=== PATIENT | female | born 1955 | race Caucasian/White ===

== ENCOUNTER 2019-01-23 02:17 | Inpatient (IN) | payer OTHER ==
[~2019-01-23] VITALS: Ht 175.3 cm; Wt 52.0 kg
[2019-01-23] VITALS (20 sets, daily range): BP systolic 105–132; BP diastolic 61–83
[2019-01-23] MEDS ORDERED: SODIUM CHLORIDE 0.9% 1,000 ML IVB ONE (02:29)
[2019-01-23] MEDS ORDERED: METOPROLOL TARTRATE 1MG/1ML-5ML VIAL IV ONE (02:30)
[2019-01-23 03:17] LABS: Basophils # (auto) 0 uL; Basophils % (auto) 0.9 % (0.0-2.0); Eosinophils # (auto) 0.1 uL; Eosinophils % (auto) 1.2 % (0.0-7.0); Hematocrit 40.5 % (36.0-46.0); Hemoglobin 13.6 g/dL (12.2-16.2); Lymphocytes # (auto) 2.1 uL; Lymphocytes % (auto) 50.4 % (10.0-50.0); Mean Corpuscular Hemoglobin 30.8 pg (28.0-32.0); Mean Corpuscular Hgb Conc. 33.5 g/dL (32.0-36.0); Mean Corpuscular Volume 91.9 fL (80.0-100.0); Monocytes # (auto) 0.1 uL; Monocytes % (auto) 2.5 % (0.0-12.0); Neutrophils # (auto) 1.9 uL; Platelet Count (auto) 195 10^3/uL (140-450); Red Blood Cells 4.41 10^6/uL (4.0-5.20); Red Cell Distribution Width 13.8 % (11.8-14.3); White Blood Cell 4.2 10^3/uL (4.4-10.8)
[2019-01-23 03:35] LABS: INR 1.03 (0.9-1.15); Partial Thromboplastin Time 23.5 sec (23.64-32.05)
[2019-01-23 03:36] LABS: Anion Gap 9 (5-15); Blood Urea Nitrogen 19 mg/dL (7-18); Calcium 7.9 mg/dL (8.5-10.1); Carbon Dioxide 23 mmol/L (21-32); Chloride 113 mmol/L (98-107); Glucose 205 mg/dL (74-106); Magnesium 2.3 mg/dL (1.6-2.6); Potassium 3.1 mmol/L (3.5-5.1); Sodium 145 mmol/L (136-145)
[2019-01-23 03:43] LABS: Alanine Aminotransferase 46 U/L (13-56); Alkaline Phosphatase 51 U/L (45-117); Aspartate Aminotransferase 50 U/L (15-37); Bilirubin, Total 0.2 mg/dL (0.2-1.0); GFR African American 63 mL/min; GFR Non-African American 52 mL/min
[2019-01-23] MEDS ORDERED: NOREPINEPHRINE 8 MG/250ML KIT 250 ML IV SCH (04:00)
[2019-01-23] MEDS ORDERED: ONDANSETRON HCL 4 MG/2 ML VIAL IV ONE (04:00)
[2019-01-23] MEDS ORDERED: NOREPINEPHRINE 8 MG/250ML KIT 250 ML IV ONE (04:01)
[2019-01-23] MEDS ORDERED: AMIODARONE HCL 900 MG in DEXTROSE 500 ML IV SCH ×2 (04:30→10:30)
[2019-01-23] MEDS: POTASSIUM CHL 20MEQ/100ML 100 ML IV SCH ×2 (04:30→06:37)
[2019-01-23 06:50] LABS: Urine Bacteria FEW /hpf (None Seen); Urine Blood 1+ /uL (Negative); Urine Hyaline Cast MANY /lpf (0 - 2); Urine Mucus FEW (None Seen); Urine Specific Gravity 1.011 (1.001-1.035); Urine WBC 4 /hpf (0 - 5)
[2019-01-23] MEDS ORDERED: ONDANSETRON HCL 4 MG/2 ML VIAL IV PRN (07:15)
[2019-01-23] MEDS ORDERED: TEMAZEPAM 15 MG CAP PO PRN (07:15)
[2019-01-23] MEDS ORDERED: SODIUM CHLORIDE 0.9% 1,000 ML IV SCH (07:15)
[2019-01-23] MEDS ORDERED: ACETAMINOPHEN 325 MG TAB PO PRN (07:15)
[2019-01-23] MEDS ORDERED: NITROGLYCERIN 0.4 MG SL TAB SL PRN (07:15)
[2019-01-23] MEDS ORDERED: MORPHINE SULF INJ 2 MG/ML SYRINGE 1ML IV PRN (07:15)
[2019-01-23] MEDS ORDERED: ATORVASTATIN 20 MG TAB PO ONE ×2 (08:00→12:45)
[2019-01-23] MEDS ORDERED: ENOXAPARIN SOD 100 MG/1 ML SYRINGE SC ONE (08:00)
[2019-01-23] MEDS ORDERED: ASPirin 81 mg TAB PO ONE (08:00)
[2019-01-23] MEDS ORDERED: cefTRIAXone 1GM/50ML D5W 50 ML IV SCH (09:00)
--- NOTE | 2019-01-23 09:35 | NUR ---
Received pt from ED. A+O x4 denies any c.p or s.o.b pt currently on 2 jus/min of levophed, vss, afibrile, pt no longer being re-warmed. pt normo-thermic. Pt remains NPO until boom boss comes to assess pt. Educated pt on poc. pt verbalized understanding.
[2019-01-23] MEDS ORDERED: ENOXAPARIN SOD 100 MG/1 ML SYRINGE SC SCH (10:00)
--- NOTE | 2019-01-23 11:00 | NUR ---
WEANED OFF LEVOPHED. VSS. AWAITING FOR MD. TO ROUND ON PT TO CLEAR PT TO BE DOWNGRADED TO FLOOR.
--- NOTE | 2019-01-23 11:32 | NUR ---
NOTIFIED DR. GAINES OF ELEVATED TROPONIN 2.09 DR. GAINES WILL COME TO SEE PT LATER IN THE EVENING. PT AWARE THAT PT CAME IN WITH TACHYCARDIA AND HYPOTENSION, IS CURRENTLY OFF PRESSORS AND IS NO LONGER HAVING C.P.
--- NOTE | 2019-01-23 12:46 | NUR ---
DR. TORRES ROUNDING ON PT. NEW ORDERS RECEIVED FOR PLAVIX LOADING DOSE AND ADDITIONAL 132 MG OF ASA. TO CHANGE IVF TO D51/2 NS WHILE PT IS NPO AND TO KEEP PT IN HOSPITAL REGARDLESS OF HER INSURANCE [facility] NOT AUTHORIZING HER STAY. PT,. NEEDS CARDIAC CLEARANCE PRIOR TO BEEN CONSIDER STABLE TO BE TRANSFER.
[2019-01-23] MEDS ORDERED: CLOPIDOGREL 300 MG TAB PO ONE (13:00)
[2019-01-23] MEDS ORDERED: D5W/SOD CHL 0.45% 1,000 ML IV SCH (13:00)
[2019-01-23] MEDS: FAMOTIDINE 20 MG TAB PO SCH ×2 (13:33→21:39)
--- NOTE | 2019-01-23 14:13 | NUR ---
1300 01/23/19 Contacted testing analyst Joshua at [facility] and requested to speak with [employer] Producer regarding admission authorization. Per Joshua patient has not been assigned to a shoe parts caser yet-case has been denied to to lack of notification prior to admission. I asked to speak with any shoe parts caser regarding the fact that patient has elevated troponins and will most likely require a heart catheterization-requesting authorization for procedure. Per Joshua, this has to come from the Newscast Producer who will be assigned to the case. Per Joshua he will have the Newscast Producer (once assigned) call me regarding authorization. I spoke with Dr. Ceballos to make her aware of authorization status.
--- NOTE | 2019-01-23 15:05 | NUR ---
Transferred from ICU to [facility] transferred to [facility] via hospital bed on front desk monitor, and portable 02. Patient connected to unit monitoring and oxygen, and weighed by bedscale. Patient oriented to ANA LORENZO, RN primary RN, unit, room, bed, and unit policies regarding patient care and visiting hours. All questions and concerns addressed, patient verbalized understanding. Patient has 20 G right forearm with NS lock, 18 G at left AC running IV 40 ml/hr, F/C draining to the bag well, on O2 NC 2 LPM , O2 saturation 100%, no complaining of chest pain or N/V noted, last BM was last night. Patient alert and awake, follow direction, able to move all extremities. BT 98.5 F, HR 71 with SR, BP 130/66 mmHg. Will continue to monitor and patient made aware that will keep NPO, waiting for Dr. Smith.
--- NOTE | 2019-01-23 15:25 | NUR ---
called dr. lugo to clarify if she wanted venous doppler us. as discussed before for BLE, pt has elevated d- dimer. pt also has elevated troponin. pt already had echocardiogram and has to have it read.
--- NOTE | 2019-01-23 15:53 | NUR ---
Patient's families at the bedside. Patient sitting up on the bed, talking to her families, no complaining of chest pain noted, vital sign stable, BP 119/72 mmHg, HR 71 /min.
--- NOTE | 2019-01-23 16:24 | NUR ---
Ultrasound at the bedside.
--- NOTE | 2019-01-23 16:25 | NUR ---
MRSA specimen already obtained and sent to the lab.
--- NOTE | 2019-01-23 17:02 | NUR ---
Paged Dr. Smith regarding consultation and possible procedure today, patient been NPO for possible procedure, waiting a call back from MD.
--- NOTE | 2019-01-23 17:28 | NUR ---
Paged Hospitalist substation manager regarding Diet and nose congestion, waiting for MD to call back.
[2019-01-23] MEDS ORDERED: POTASSIUM EFFERVESENT TAB 25 MEQ GT ONE (18:00)
--- NOTE | 2019-01-23 18:15 | NUR ---
Received a call back from Dr. Smith, patient okay to have dinner, received order for Cardiac diet, plan to do Cardiolite possible tomorrow, patient made aware.
--- NOTE | 2019-01-23 18:25 | NUR ---
Got a call back from Cristofer CHOI for hospitalist, received order for Barton spray for nose congestion, patient and her families made aware.
--- NOTE | 2019-01-23 18:39 | NUR ---
Dr. Smith at the bedside, seen patient at this time, plan of care discussed with patient and her families at the bedside. Received order for Potassium 20 mEq po x 1, D/C previous Potassium 50 mEq. Patient made aware.
[2019-01-23] MEDS ORDERED: POTASSIUM CHL 20 Meq TABLET PO ONE (18:45)
--- NOTE | 2019-01-23 18:49 | NUR ---
Patient had around 100% of Dinner tray, no N/V noted.
--- NOTE | 2019-01-23 19:10 | NUR ---
OPENING SHIFT RECEIVED REPORT FROM DAY SHIFT RN. ASSUMED CARE OF PATIENT IN BED WITH NO SIGNS OR SYMPTOMS OF SOB, PAIN OR DISTRESS. CURRENTLY ON 2L 02 NASAL CANNULA, 02 SAT - 99%. RIGHT FORE ARM AND LEFT ANTECUBITAL IV - CLEAN/DRY/INTACT. JOHN HUNG TO GRAVITY ON BED RAIL. UPDATED PATIENT ON PLAN OF CARE. WILL CONTINUE TO MONITOR.
[2019-01-23] MEDS: SALINE 0.65 % NASAL SPRAY 45ML BOTTLE EACHNOSTRI SCH (21:39)
[2019-01-23] MEDS: ENOXAPARIN SOD 80 MG/0.8ML SYRINGE SC SCH (21:40)
[2019-01-23] MEDS ORDERED: ATORVASTATIN 20 MG TAB PO SCH (22:00)
[2019-01-24] VITALS: BP 95/53
[2019-01-24 04:00] VITALS: BP 100/58
--- NOTE | 2019-01-24 04:45 | NUR ---
MORNING CARE PATIENT PERFORMED MORNING CARE ON SELF WITH CHG WIPES AND WASH CLOTHS. PARTIAL LINEN CHANGE AND GOWN CHANGED. REPOSITIONED FOR COMFORT. SKIN REASSESSED AT THIS TIME. BED IN LOWEST POSITION, SIDE RAILS UP X2, CALL LIGHT WITHIN REACH. WILL CONTINUE TO MONITOR.
[2019-01-24 05:42] LABS: Basophils # (auto) 0.1 uL; Basophils % (auto) 1.3 % (0.0-2.0); Eosinophils # (auto) 0 uL; Eosinophils % (auto) 0.8 % (0.0-7.0); Hematocrit 38.9 % (36.0-46.0); Hemoglobin 13.5 g/dL (12.2-16.2); Lymphocytes # (auto) 1.7 uL; Lymphocytes % (auto) 42.4 % (10.0-50.0); Mean Corpuscular Hemoglobin 31.2 pg (28.0-32.0); Mean Corpuscular Hgb Conc. 34.8 g/dL (32.0-36.0); Mean Corpuscular Volume 89.5 fL (80.0-100.0); Monocytes # (auto) 0.2 uL; Monocytes % (auto) 5.6 % (0.0-12.0); Neutrophils % (auto) 49.9 % (37.0-80.0); Platelet Count (auto) 143 10^3/uL (140-450); Red Blood Cells 4.34 10^6/uL (4.0-5.20); Red Cell Distribution Width 13.8 % (11.8-14.3); White Blood Cell 4.1 10^3/uL (4.4-10.8)
[2019-01-24] MEDS: SALINE 0.65 % NASAL SPRAY 45ML BOTTLE EACHNOSTRI SCH ×2 (05:56→12:39)
[2019-01-24 06:08] LABS: Calcium 8.1 mg/dL (8.5-10.1); Potassium 4.6 mmol/L (3.5-5.1)
[2019-01-24 06:14] LABS: Albumin 3.2 g/dL (3.4-5.0); BUN/Creatinine Ratio 14.8; Bilirubin, Total 0.4 mg/dL (0.2-1.0); Total Protein 6.2 g/dL (6.4-8.2)
--- NOTE | 2019-01-24 07:18 | NUR ---
END OF SHIFT REPORT GIVEN TO DAY SHIFT RN. CARE ENDORSED.
--- NOTE | 2019-01-24 07:54 | NUR ---
Opening Shift Note Assumed care of patient, patient sleeping, woke up by calling her name, awake and alert. No S/S of distress/SOB or chest pain. Instructed on POC and to call for assist PRN, will continue to monitor for changes Q1hr and PRN. Patient made aware that will need to NPO this morning for Cardiolite, will continue to monitor and care. Addendum: 01/24/19 at 0807 by ANA LORENZO RN RN By MACIEL FONG
[2019-01-24 08:00] VITALS: BP 111/62
--- NOTE | 2019-01-24 08:30 | NUR ---
Her at the bedside, made aware about the plan of care.
[2019-01-24] MEDS ORDERED: ADENOSINE 44 MG in GIVE UN-DILUTED 0 ML IV STA (09:06)
--- NOTE | 2019-01-24 09:30 | NUR ---
Patient was taken for Cardiolite.
[2019-01-24] MEDS ORDERED: ASPirin 81 mg TAB PO SCH ×2 (10:00→11:00)
[2019-01-24] MEDS ORDERED: ENOXAPARIN SOD 100 MG/1 ML SYRINGE SC SCH (10:00)
--- NOTE | 2019-01-24 10:45 | NUR ---
[facility], Dr. Mercado also at the bedside, plan of care discussed with patient, received order for transfer to [place], patient and her made aware.
[2019-01-24] MEDS ORDERED: CLOPIDOGREL BISULFATE 75 MG TAB PO ONE (11:00)
[2019-01-24] MEDS: FAMOTIDINE 20 MG TAB PO SCH (11:11)
[2019-01-24] MEDS: ENOXAPARIN SOD 80 MG/0.8ML SYRINGE SC SCH (11:11)
[2019-01-24 11:34] VITALS: BP 111/62
[2019-01-24 12:00] VITALS: BP 121/71
--- NOTE | 2019-01-24 12:29 | NUR ---
Received a call from manager case management ([place]), updated patient vital sign and they are waiting a result of Cardiolite and also Echocardiogram. Will fax when i get the result. [place] and .
--- NOTE | 2019-01-24 14:00 | NUR ---
Patient used the bedside commode, no BM at this time, just the gas.
--- NOTE | 2019-01-24 14:16 | NUR ---
Faxed Cardiology report and progress noted to [facility], called and spoke to shoe parts caser, they got the fax. Will wait they will call back for the bed and picking tech time.
[2019-01-24] MEDS ORDERED: ASPI-378 PO (15:13)
[2019-01-24] MEDS ORDERED: CLOP75TA28 PO (15:13)
[2019-01-24] MEDS ORDERED: ATO40T PO (15:14)
--- NOTE | 2019-01-24 15:30 | NUR ---
Received a call from Dr. Jess MD discussed with Dr. Smith that patient can D/C home and follow up with registration officer from [facility]. Patient made aware and she will call her to pick her up.
--- NOTE | 2019-01-24 15:36 | NUR ---
Sent MRSA to Lab.
--- NOTE | 2019-01-24 15:40 | NUR ---
Called and talked to family preservation caseworker from [place], she made aware that patient will D/C home from here.
[2019-01-24 16:00] VITALS: BP 117/69
--- NOTE | 2019-01-24 17:19 | NUR ---
Called the [place] pharmacy for call in for prescription. Patient made aware that will buy ASA 81 mg from [facility]. Provided Lipitor 40 mg at this time.
--- NOTE | 2019-01-24 17:33 | NUR ---
Discharge instructions given as ordered. Encourage to follow up with PMD as instructed. All questions and concerns addressed. Patient verbalized understanding. Medication reconciliation form completed and copy given to patient. IV removed with catheter intact, pressure dressing applied, whalen catheter removed (got 2800 ml from the catheter, patient made aware to monitor for hematuria, bladder full, if cannot void patient made aware that will be back to hospital for future treatment. Patient stated that bats[place] daughter already made the appointment for patient to follow up with PCP tomorrow and program review director on Monday. Patient taken to vehicle via wheelchair with all personal belongings, accompanied by staff and family member. No distress noted at time of departure.
[2019-01-24] MEDS ORDERED: ATORVASTATIN 20 MG TAB PO SCH (22:00)
[2019-01-25] MEDS ORDERED: CLOPIDOGREL BISULFATE 75 MG TAB PO SCH (10:00)
== END 2019-01-24 17:25 | disposition home or self-care (01) | DRG 282 ==
LOC: EDBD 02:17 → ER 02:19 → TELE 02:20 → ICU WEST 09:44 → DOU IN ICU 15:15
PROVIDERS: ADMIT Nurse Practitioner; ATTEND Internal Medicine Nephrology
DX: I21.4 Non-ST elevation (NSTEMI) myocardial infarction (principal); E87.6 Hypokalemia; Z87.442 Personal history of urinary calculi; E03.9 Hypothyroidism, unspecified; I95.9 Hypotension, unspecified; T68.XXXA Hypothermia, initial encounter; I48.91 Unspecified atrial fibrillation
CPT/HCPCS: 36415; 51702; 71045; 78452; 80053; 81001; 83036; 83605; 83735; 83880; 84443; 84484; 85025; 85379; 85610; 85730; 87040; 87081; 93005; 93017; 93306; 93970; 96365; 96372; 96375; 99291; G0378; J0153; J2405; J3480